=== PATIENT | female | born 1940 | race Caucasian/White ===

== ENCOUNTER → 2017-03-15 | Outpatient (CLI) | payer MEDICARE, BC ==
[~2017-03-15] MED LIST: ALEVE220 MG PO; ASPIRIN E.C. 8181 MG PO; LEVOXYL0.025 MG PO; LISINOPRIL/HCTZ1 TA1 PO; MULTIPLE VITAMI1 CAP PO; SIMVASTATIN40 MG PO; TUMS 500500 MG PO
== END ==
LOC: MC.RAD 08:52
DX: Z12.31 Encounter for screening mammogram for malignant neoplasm of breast (principal)

== ENCOUNTER → 2018-01-16 | Outpatient (CLI) | payer MEDICARE, BC | LOC: COL.RAD 09:24 | DX: K76.89 Other specified diseases of liver (principal); N28.1 Cyst of kidney, acquired ==

== ENCOUNTER → 2018-03-18 | Outpatient (CLI) | payer MEDICARE, BC | LOC: MC.RAD 08:36 | DX: Z12.31 Encounter for screening mammogram for malignant neoplasm of breast (principal) ==

== ENCOUNTER → 2019-03-20 | Outpatient (CLI) | payer MEDICARE, BC | LOC: MC.RAD 08:41 | DX: Z12.31 Encounter for screening mammogram for malignant neoplasm of breast (principal) ==

== ENCOUNTER → 2020-06-01 | Outpatient (CLI) | payer MEDICARE, BC | LOC: MC.RAD 09:07 | DX: Z12.31 Encounter for screening mammogram for malignant neoplasm of breast (principal) ==

== ENCOUNTER 2020-10-27 16:24 | Emergency (ER) | payer MEDICARE, BC ==
[~2020-10-27] VITALS: Ht 167.6 cm; Wt 68.2 kg
[2020-10-27 16:26] VITALS: BP 175/89; TEMP 97.6
[2020-10-27] MEDS ORDERED: DOXYCYCLINE HY100 MG PO (17:11)
[2020-10-27 17:24] VITALS: PULSE 85
[2020-10-28] MEDS ORDERED: PRINZIDE 12.5 M1 TA1 PO (17:08)
[2020-10-28] MEDS ORDERED: ZYLOPRIM 100MG100 MG PO (17:08)
[2020-10-28] MEDS ORDERED: SYNTHROID 0.0.025 MG PO (17:09)
[2020-10-28] MEDS ORDERED: ZOCOR 40MG40 MG PO (17:09)
== END 2020-10-27 17:26 | disposition home or self-care (01) ==
LOC: COL.ER 16:24
DX: S51.851A Open bite of right forearm, initial encounter (principal); I10 Essential (primary) hypertension; E03.9 Hypothyroidism, unspecified; E78.5 Hyperlipidemia, unspecified; F17.200 Nicotine dependence, unspecified, uncomplicated; Z88.0 Allergy status to penicillin; Z79.82 Long term (current) use of aspirin; Z79.890 Hormone replacement therapy; W54.0XXA Bitten by dog, initial encounter
CPT/HCPCS: J2795

== ENCOUNTER 2020-10-28 15:29 | Day surgery (SDC) | payer MEDICARE, BC ==
[~2020-10-28] VITALS: Ht 167.6 cm; Wt 65.4 kg
[~2020-10-28 15:29] MED LIST changes: +DOXYCYCLINE HY100 MG PO
[2020-10-28 16:37] VITALS: BP 164/70; PULSE 81; TEMP 97.6
[2020-10-28] MEDS ORDERED: ZYLOPRIM 100MG100 MG PO (17:08)
[2020-10-28] MEDS ORDERED: PRINZIDE 12.5 M1 TA1 PO (17:08)
[2020-10-28] MEDS ORDERED: ZOCOR 40MG40 MG PO (17:09)
[2020-10-28] MEDS ORDERED: SYNTHROID 0.0.025 MG PO (17:09)
[2020-10-28 17:31] VITALS: BP 178/79; PULSE 82; TEMP 97.3
--- NOTE | 2020-10-28 17:31 | NUR ---
Pt returns from OR via cart. Report received from LILIA Alejandra, and OSCAR Gaspar. Monitors on and alarms set. Call light within reach. Pt received no sedation, and Dr. Che will allow pt to go home as soon as possible. Pt has no complaints of pain or nausea. Right arm supported in sling.
[2020-10-28 18:00] VITALS: BP 169/78; PULSE 78
--- NOTE | 2020-10-28 18:00 | NUR ---
Pt aided in getting dressed. Discharge instructions given to pt. All questions answered to her satisfaction. Handed to her are discharge instructions, a thank you card, and a follow-up appointment reminder.
--- NOTE | 2020-10-28 18:15 | NUR ---
Pt transferred out of hospital via ambulation to private vehicle driven by .
== END 2020-10-28 18:15 | disposition home or self-care (01) ==
LOC: SDCO 15:29
DX: S51.851A Open bite of right forearm, initial encounter (principal); F17.210 Nicotine dependence, cigarettes, uncomplicated; Z88.0 Allergy status to penicillin
CPT/HCPCS: J0690; J1100; J7120

== ENCOUNTER → 2022-06-05 | Outpatient (CLI) | payer MEDICARE, BC ==
[~2022-06-05] MED LIST changes: +PRINZIDE 12.5 M1 TA1 PO; +SYNTHROID 0.0.025 MG PO; +ZOCOR 40MG40 MG PO; +ZYLOPRIM 100MG100 MG PO
== END ==
LOC: MC.RAD 09:21
DX: Z12.31 Encounter for screening mammogram for malignant neoplasm of breast (principal); N64.89 Other specified disorders of breast

== ENCOUNTER → 2022-06-09 | Outpatient (CLI) | payer MEDICARE, BC | LOC: MC.RAD 08:57 | DX: N63.11 Unspecified lump in the right breast, upper outer quadrant (principal) ==

== ENCOUNTER → 2022-06-14 | Outpatient (CLI) | payer MEDICARE, BC | LOC: MC.RAD 08:20 | DX: R92.8 Other abnormal and inconclusive findings on diagnostic imaging of breast (principal) ==

== ENCOUNTER → 2022-07-05 | Outpatient (CLI) | payer MEDICARE, BC ==
[~2022-07-05] MED LIST changes: +ASPIRIN 81M81 MG/TA2 PO
== END ==
LOC: MC.RAD 10:51
DX: C50.411 Malignant neoplasm of upper-outer quadrant of right female breast (principal)
CPT/HCPCS: C1769

== ENCOUNTER → 2024-06-12 | Outpatient (CLI) | payer MEDICARE, BC | LOC: COL.RAD 10:20 | DX: R22.2 Localized swelling, mass and lump, trunk (principal) ==

== ENCOUNTER → 2024-06-18 | Outpatient (CLI) | payer MEDICARE, BC ==
[~2024-06-18] MED LIST changes: +Iohexol 300 - 100 ML VIAL IV ONE; +NS 100 ML IV SCH
== END ==
LOC: COL.RAD 14:16
DX: M89.8X8 Other specified disorders of bone, other site (principal); R91.8 Other nonspecific abnormal finding of lung field; Z85.3 Personal history of malignant neoplasm of breast
CPT/HCPCS: Q9967

== ENCOUNTER → 2024-07-22 | Outpatient (CLI) | payer MEDICARE, BC ==
[~2024-07-22] MED LIST changes: -Iohexol 300 - 100 ML VIAL IV ONE; -NS 100 ML IV SCH
== END ==
LOC: COL.CARD 10:56
DX: C50.919 Malignant neoplasm of unspecified site of unspecified female breast (principal)